=== PATIENT | female | born 1995 | race Caucasian/White ===

== ENCOUNTER 2023-09-25 11:39 | Emergency (ER) | payer OTHER, SELFPAY ==
[2023-09-25 11:39] VITALS: BMI 14.6
[2023-09-25 11:53] VITALS: BP 119/87
[2023-09-25 12:30] LABS: % Basophils 0.5 % (0-2); % Eosinophils 0.5 % (0-6); % Lymphocytes 16.1 % (20.5-51.1); % Monocytes 18.6 % (1.7-9.3); % Neutrophils 64.3 % (42.2-75.2); Absolute Lymphocytes 0.7 10^3/uL (1.2-3.4); Absolute Monocytes 0.8 10^3/uL (0.1-0.6); Absolute Neutrophils 2.8 10^3/uL (1.4-6.5); Hematocrit 41.1 % (37.0-47.0); Hemoglobin 14.3 g/dL (12.0-16.0); Mean Corp Hgb Conc. 34.8 g/dL (33.0-37.0); Mean Corpuscular Hgb 31.4 pg (27.0-31.0); Mean Corpuscular Volume 90.3 fL (81.0-99.0); Mean Platelet Volume 10.3 fL (7.4-10.4); Nucleated Red Blood Cells % 0 %; Platelet Count 206 10^3/uL (130-400); Red Blood Cell Count 4.55 10^6/uL (4.20-5.40); Red Cell Dist. Width 11.7 % (11.5-14.5); White Blood Cell Count 4.4 10^3/uL (4.8-10.8)
--- NOTE | 2023-09-25 12:31 | ED.GENMED ---
History of Present Illness
General
Chief Complaint: Weight Changes
Time Seen by Provider: 09/25/23 12:31
Travel History
Have you had any contact with someone who has COVID-19?: No
Do you have any symptoms of coronavirus? Fever > 100 degrees, chills, cough, shortness of breath, sore throat, loss of taste or smell, muscle aches, or headache?: Yes
Symptoms:: has the flu
History of Present Illness
History of Present Illness:
HPI: Patient presents due to concern for loss of appetite over the last 4 months. She was recently started on levothyroxine.
EXAM:
GENERAL: The patient appears very thin with small stature
HEENT: Moist oral mucosa
CARDIOVASCULAR: No murmurs, normal heart rate and rhythm, No chest wall tenderness
PULMONARY: No respiratory distress, breath sounds are clear and equal
ABDOMEN: Soft with no peritoneal signs, no tenderness
NEUROLOGIC: Excellent strength all extremities, no coordination deficits
PSYCHIATRIC: Appropriate mental status, normal insight and judgement
EXTREMITIES: Nontender, no edema, moves all extremities equally
SKIN: No rash, no lesions
ED COURSE:
12:45 PM: I initially evaluated
NUMBER AND COMPLEXITY OF PROBLEMS ADDRESSED AT THE ENCOUNTER
� Chronic conditions affecting care: Thyroid disease
� Acute Exacerbation and/or Progression of Chronic Illness: This is an acute problem
� Differential Diagnosis includes: Anorexia, bowel obstruction, gastritis
AMOUNT AND/OR COMPLEXITY OF DATA TO BE REVIEWED AND ANALYZED
� I performed an independent evaluation of and my interpretation is:
EKG:
CT: CT imaging shows no acute abnormality
X-rays:
Laboratory Studies: White count slightly low at 4.4, hemoglobin normal, TSH normal
Other:
� Review of other/old records: No old records available for review in [facility]
� Clinical information was obtained by an independent historian: I spoke to family friend at bedside
� Prescriptions/Medications Considered but not given:
� Further testing considered but not performed:
RISK OF COMPLICATIONS AND/OR MORBIDITY OR MORTALITY OF PATIENT MANAGEMENT
� Social determinants of health affecting care: Lives at home
� Discussion with other providers: The patient was sent by another office in which report indicates that the patient lost 9 pounds in 6 weeks associate with early satiety fevers and was positive for flu A
� Escalation of care including admission/observation vs risk of discharge considered: Labs and CT imaging unremarkable. She states that she has appointment to see GI through [facility] in 4 days.
Phy Exam
Physical Exam
Physical Exam:
See HPI
Course
Orders/Labs/Results
Orders:
Orders
09/25/23 11:52
Test Result ONCE
09/25/23 12:17
Complete Blood Count/With Diff Urgent
Comprehensive Metabolic Panel Urgent
HCG, Serum Qualitative Screen Urgent
TSH Reflex To Free T4 Urgent
09/25/23 12:36
0.9% Sodium Chloride 1000 ml [Nss] 1,000 ml IV BOLUS
09/25/23 12:46
CT Abd/pel W Iv And Oral Contr Urgent
Comment:
Reason For Exam: worsening unintentional weight loss early satiety
Iohexol [Omnipaque] See Protocol PO NOW STA
Abnormal Lab Results
09/25/23
12:17
WBC 4.4 L 10^3/uL
(4.8-10.8)
MCH 31.4 H pg
(27.0-31.0)
Absolute Lymphs (auto) 0.7 L 10^3/uL
(1.2-3.4)
Absolute Monos (auto) 0.8 H 10^3/uL
(0.1-0.6)
Lymphocytes % 16.1 L %
(20.5-51.1)
Monocytes % 18.6 H %
(1.7-9.3)
09/25/23 12:17
09/25/23 12:17
Vital Signs
Initial and Last Documented VS:
Initial Vital Signs
Temp Pulse Resp BP Pulse Ox
99.1 F 87 18 119/87 98
09/25/23 11:53 09/25/23 11:53 09/25/23 11:53 09/25/23 11:53 09/25/23 11:53
Last Documented Vital Signs
Temp Pulse Resp BP Pulse Ox
99.1 F 87 18 119/87 98
09/25/23 11:53 09/25/23 11:53 09/25/23 11:53 09/25/23 11:53 09/25/23 11:53
*Critical Care Note
Total Time (30-74mins, 75-104mins- exclusive of procedures): Not Applicable
ED Attending Note
-
Portions of this chart may have been created with voice recognition software.� Occasional wrong word or��sound alike� substitutions may have occurred due to the inherent limitations of voice recognition software.
Discharge Plan
Departure
Patient Disposition: Home (Routine Discharge)
Date of Disposition: 09/25/23
Time of Disposition: 16:34
Patient with high blood pressure during this ER visit?: Yes
Discharge Problem:
Abnormal weight loss
Prescriptions:
No Action
bupropion HCl [Wellbutrin] 100 mg Tablet
100 mg PO DAILY
levothyroxine 25 mcg Tablet
25 mcg PO DAILY
escitalopram oxalate [Lexapro] 10 mg Tablet
10 mg PO DAILY
Referrals:
Megan Ambrose CRNP [Family Provider] -
Activity Restrictions/Additional Instructions:
The cause of your symptoms is unclear. Thyroid testing is within normal range, other basic blood work is normal, CAT scan of the abdomen and pelvis with oral and IV contrast does not show any acute abnormality. I recommend you follow-up with GI.
Interventions
Interventions:
*Risk Screen - Suicide Last Done: 09/25/23 12:29
*General Assessment Last Done: 09/25/23 12:29
*Neglect/Abuse Screening Last Done: 09/25/23 12:29
ED- Fall Risk Assessment Last Done: 09/25/23 12:29
*ED COVID-19 Vaccine History Last Done: 09/25/23 12:29
[2023-09-25] MEDS: NSS 1000 IV (12:41)
[2023-09-25 12:49] LABS: HCG, Serum Qualitative Screen Negative
[2023-09-25] MEDS: OMNIPAQUE 50 ML PO (12:49)
[2023-09-25 13:03] LABS: ALT (SGPT) 17 U/L (0-35); AST (SGOT) 28 U/L (14-36); Albumin 4.8 g/dl (3.5-5.0); Alkaline Phosphatase 50 U/L (38-126); Blood Urea Nitrogen 12 mg/dl (7-17); Calcium 9.5 mg/dl (8.4-10.2); Carbon Dioxide 27 mmol/L (22-30); Chloride 99 mmol/L (98-107); Estimated Creatinine Clearance 75 ml/min; Glucose 98 mg/dl (70-99); Potassium 4.1 mmol/L (3.5-5.1); Sodium 135 mmol/L (135-145); Total Bilirubin 0.5 mg/dl (0.2-1.3); Total Protein 7.8 g/dl (6.3-8.2); eGFR > 60.00
[2023-09-25 13:19] LABS: TSH Reflex To Free T4 3.33 uIU/ml (0.47-4.68)
[2023-09-25 16:42] VITALS: BP 103/74
[2023-09-25 16:43] VITALS: BP 103/74
== END 2023-09-25 16:45 | disposition home or self-care (01) ==
LOC: EMR 11:39
PROVIDERS: Emergency Medicine; EMERGENCY PHYSICIAN Emergency Medicine; FAMILY PHYSICIAN Registered Nurse
DX: R63.4 Abnormal weight loss (principal); J10.1 Influenza due to other identified influenza virus with other respiratory manifestations
CPT/HCPCS: 99285; 96360; 74177; 80053; 84443; 84703; 85025; Q9967

== ENCOUNTER → 2023-12-08 14:46 | Outpatient (REF) | payer OTHER, SELFPAY | LOC: WDC 14:46 | PROVIDERS: ATTENDING PHYSICIAN Student in an Organized Health Care Education/Training Program | DX: N63.10 Unspecified lump in the right breast, unspecified quadrant (principal); N63.11 Unspecified lump in the right breast, upper outer quadrant | CPT/HCPCS: 76642 ==